=== PATIENT | male | born 1950 | race Caucasian/White ===

== ENCOUNTER 2019-07-18 11:37 | Emergency (ER) | payer MEDICARE ==
--- OUTSIDE RECORDS SUMMARY | 2019-07-18 12:46 | XMS REPORT | Continuity of Care Document ---
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 Onset: 10/14/2013 Chest pain Yonis Burr M.D. Onset: 10/14/2013 Paroxysmal ventricular tachycardia Yonis Burr M.D. Onset: 10/14/2013 Electrocardiogram abnormal Yonis Burr M.D. Onset: 10/14/2013 Coronary arteriosclerosis Yonis Burr M.D. Onset: 01/19/2014 Social History Type Date Description Comments Sex Unknown Tobacco Use Start: Unknown Former Cigarette 1 to 1 1/2 packs per End: Smoker 1 Pack Daily day. 5 years Tobacco Use Start: Unknown Secondhand smoke As a child, mother smoked inside Smoking Status Reviewed: 07/02/19 Secondhand smoke As a child, mother smoked inside ETOH Use consumes 1-2 beers per week Tobacco Use Start: Unknown Patient is a former hx of 1 pack End: Unknown smoker cigarettes perday, quit smoking 35 years ago Recreational Drug Use Denies Drug Use Exercise Type/Frequency Exercises regularly Exercise Type/Frequency Walks daily walking dog daily. 1 1/2 miles Allergies, Adverse Reactions, Alerts Description No Known Drug Allergies Medications Active Medications SIG Qnty Indications Ordering Date Provider Clopidogrel 1 tab by mouth 90tabs Aleida Sánchez, 12/20/2014 Bisulfate daily N.P. 75mg Tablets Bystolic 2 by mouth in 270tabs Aleida Sánchez, 08/12/2014 2.5mg morning and then 1 N.P. Tablets tab in at night Azilect 1 po qd am 30tabs Unknown 1mg Tablets Carbidopa/Levodopa take 1 po 5 times a 90tabs Unknown CR day 25-100mg Tablets ER Carbidopa/Levodopa 1 tab po day pm 120tabs Unknown SR 50-200mg Tablets ER Comtan 1 tab po five times Unknown 200mg Tablets per day Amantadine HCL 1 po tid 60tabs Unknown 100mg Tablets Lexapro 1 tab po qd Unknown 10mg Ropinirole ER 1 tab po bid Unknown 4mg afternoon and PM Aspir-Low 1 po qd pm 30tabs Unknown 81mg Tablets DR Atorvastatin Calcium 1 by mouth every 90tabs Aleida Sánchez, day N.P. 40mg Tablets Nitrostat one sl q5min up to 25tabs Aleida Sánchez, 0.4mg 3 doses as needed N.P. Tablets Sub Miralax daily for Unknown 17G constipation Immunizations Description No Information Available Vital Signs Date Vital Result Comment 07/02/2019 11:35am Height 67 inches 5'7" Weight 193.00 lb Heart Rate 60 /min BP Systolic Sitting 118 mmHg Lue large cuff BP Diastolic Sitting 70 mmHg Lue large cuff Respiratory Rate 12 /min O2 % BldC Oximetry 97 % BMI (Body Mass Index) 30.2 kg/m2 05/10/2019 1:37pm Height 67 inches 5'7" Weight 189.25 lb Heart Rate 56 /min BP Systolic Sitting 140 mmHg Rue reg cuff BP Diastolic Sitting 86 mmHg Rue reg cuff Respiratory Rate 14 /min O2 % BldC Oximetry 98 % On Ra BMI (Body Mass Index) 29.6 kg/m2 Results Description No Information Available Procedures Date Code Description Status 03/05/2019 60924 Sleep Study Unattended,HRT Rate,Oxygen Sat,Resp Completed Effort/Airflow Medical Devices Description No Information Available Encounters Type Date Location Provider Dx Diagnosis Office Visit 05/10/2019 [facility] G47.33 Obstructive sleep 1:30p [facility] apnea (adult) [facility] (pediatric) G47.52 REM sleep behavior disorder Office Visit 03/30/2019 [facility] G47.33 Obstructive sleep 1:00p [facility] apnea (adult) [facility] (pediatric) G47.52 REM sleep behavior disorder Office Visit 03/03/2019 11:30a [facility] Nettie 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 I44.7 Left bundle -branch Of [facility] Foster, N.P. block, unspecified I49.3 Ventricular premature depolarization I25.10 Athscl heart disease of [place] coronary artery w/o ang pctrs R00.2 Palpitations R94.31 Abnormal electrocardiogram [ECG] [EKG] I27.20 Pulmonary hypertension, unspecified Assessments Date Code Description Provider 07/02/2019 G47.33 Obstructive sleep apnea (adult) (pediatric) Rosalind Bustillos NP 07/02/2019 G47.52 REM sleep behavior disorder Rosalind Bustillos NP 05/10/2019 G47.33 Obstructive sleep apnea (adult) (pediatric) Rosalind Bustillos NP 05/10/2019 G47.52 REM sleep behavior disorder Rosalind Bustillos NP 03/30/2019 G47.33 Obstructive sleep apnea (adult) (pediatric) Rosalind Bustillos NP 03/30/2019 G47.52 REM sleep behavior disorder Rosalind Bustillos NP 03/05/2019 G47.33 Obstructive sleep apnea (adult) (pediatric) Nettie Vargas MD 03/03/2019 G47.9 Sleep disorder, unspecified Nettie Vargas MD 03/03/2019 R09.02 Hypoxemia Nettie Vargas MD 03/03/2019 I27.20 Pulmonary hypertension, unspecified Nettie Vargas MD 03/03/2019 G47.52 REM sleep behavior disorder Nettie Vargas MD 02/11/2019 I25.10 Atherosclerotic heart disease of [place] Nurse Visit IC coronary artery with 02/11/2019 I10 Essential (primary) hypertension Nurse Visit IC 01/19/2019 I44.7 Left bundle-branch block, unspecified Aleida Sánchez, N.P. 01/19/2019 I49.3 Ventricular premature depolarization Aleida Sánchez, N.P. 01/19/2019 I25.10 Atherosclerotic heart disease of [place] Aleida Sánchez, N.P. coronary artery with 01/19/2019 R00.2 Palpitations Aleida Sánchez, N.P. 01/19/2019 R94.31 Abnormal electrocardiogram [ECG] [EKG] Aleida Sánchez, N.P. 01/19/2019 I27.20 Pulmonary hypertension, unspecified Aleida Sánchez, N.P. Plan of Treatment Future Appointment(s):09/03/2019 1:30 pm - Rosalind Bustillos NP at [facility]07/21/2019 1:30 pm - Yonis Burr M.D. at [facility]07/02/2019 - Rosalind Bustillos NPG47.33 Obstructive sleep apnea (adult) (pediatric)New Orders:Sleep Study Cpap Retitration, Ordered: 07/02/19Follow up:2 months (PAP titration prior) Recommendations:If you have difficulty with your equipment, or need to replace your mask or hoses, please contact your homecare agency. If you have any further questions, please call the [facility] at [phone] If you have any sleepiness while driving you MUST avoid operating a vehicle or machinery. If you feel tired while driving pullman clerk and take a nap or switch drivers. If you know you are sleepy and need to go somewhere, arrange for a ride or use public transportation. It is very important to not risk your safety or the safety of others.G47.52 REM sleep behavior disorder Functional Status Description No Information Available Mental Status Description No Information Available Referrals Refer to Dr Reason for Referral Status Appt Date Nettie Vargas MD PVCs, snoring, pulmonary htn Sent [address] [place] [address] [phone]
[2019-07-18 13:17] VITALS: BP 151/71
--- NOTE | 2019-07-18 13:28 | UC ---
Respiratory Complaint HPI - HPI Summary HPI Summary: L sided sinus pain w/ some forehead pain x 3 days. ASsoc w/ tooth pain. also sick. He is requesting antibx. - History of Current Complaint Chief Complaint: UCGeneralIllness Stated Complaint: SINUSES Time Seen by Provider: 07/18/19 13:08 Hx Obtained From: Patient Pain Intensity: 0 Pain Scale Used: 0-10 Numeric Aggravating Factors: Nothing Alleviating Factors: Nothing Associated Signs And Symptoms: Negative: Fever - Allergies/Home Medications Allergies/Adverse Reactions: Allergies Allergy/AdvReac Type Severity Reaction Status Date / Time epinephrine Allergy Palpitation Verified 07/18/19 13:08 s PMH/Surg Hx/FS Hx/Imm Hx Previously Healthy: Yes Other Neurological History: parkinsons - Surgical History Surgical History: Yes Surgery Procedure, Year, and Place: Deep brain stimulator implant. stimulator battery replacement x2 - Family History Known Family History: Positive: None - Social History Alcohol Use: Rare Substance Use Type: None Smoking Status (MU): Never Smoked Tobacco - Immunization History Most Recent Influenza Vaccination: 2014/2015 Most Recent Tetanus Shot: within 10 years Most Recent Pneumonia Vaccination: 2014 Review of Systems All Other Systems Reviewed And Are Negative: Yes Constitutional: Negative: Fever Skin: Negative: Rash ENT: Positive: Dental Pain, Sinus Congestion, Sinus Pain/Tenderness. Negative: Sore Throat, Nasal Discharge Respiratory: Negative: Cough Cardiovascular: Negative: Negative Neurological: Negative: Headache Physical Exam Triage Information Reviewed: Yes Appearance: Well-Appearing Vital Signs: Initial Vital Signs Temp 97.4 F 07/18/19 13:11 Pulse 89 07/18/19 13:11 Resp 18 07/18/19 13:11 BP 151/71 07/18/19 13:11 Pulse Ox 100 07/18/19 13:11 Vital Signs Reviewed: Yes Eyes: Positive: Conjunctiva Clear ENT: Positive: Pharynx normal, TMs normal, Dental tenderness, Sinus tenderness - L max and frontal, Uvula midline Neck: Positive: Supple, Nontender, No Lymphadenopathy Respiratory Exam: Normal Cardiovascular Exam: Normal Neurological: Positive: Alert Skin: Negative: Rashes Respiratory Course/Dx - Course Course Of Treatment: Acute sinusitis w/ no fever and sick contact. He is requesting antibx. Does have eaxm findings that could be suggestive of bacterial source, will tx. vitals good. Have asked him to disc high blood pressure w/ pcp. - Differential Dx/Diagnosis Differential Diagnosis/HQI/PQRI: Sinusitis, Other Provider Diagnosis: Sinusitis Discharge ED - Sign-Out/Discharge Documenting (check all that apply): Patient Departure All imaging exams completed and their final reports reviewed: No Studies - Discharge Plan Condition: Good Disposition: HOME Prescriptions: Amoxicillin/Clavulanate TAB* [Augmentin TAB 500 mg*] 500 mg PO BID 7 Days #14 tab Patient Education Materials: Sinusitis (ED) Referrals: Severiano Bolivar MD [Primary Care Provider] - Additional Instructions: Please discuss your high blood pressure with your pcp - Billing Disposition and Condition Condition: GOOD Disposition: Home - Attestation Statements Provider Attestation: I was available for consult. This patient was seen by the DARIN. The patient was not presented to , seen by or examined by me -Vickey Escalante MD
== END 2019-07-18 13:57 | disposition home or self-care (01) ==
LOC: UCEAST 11:37
DX: J32.9 Chronic sinusitis, unspecified (principal); G20 Parkinson's disease
CPT/HCPCS: 99212; G0463

== ENCOUNTER 2019-08-11 19:45 | Inpatient (IN) | payer MEDICARE ==
[2019-08-11 20:26] LABS: ABS Basophils 0.1 10^3/ul (0-0.2); ABS Eosinophils 0.1 10^3/ul (0-0.6); ABS Lymphocytes 0.5 10^3/ul (1.0-4.8); ABS Monocytes 0.1 10^3/ul (0-0.8); ABS Neutrophils 7.6 10^3/ul (1.5-7.7); Eosinophil % 0.6 %; Hematocrit 41 % (42-52); Hemoglobin 14.2 g/dL (14.0-18.0); Lymphocyte % 5.4 %; Mean Corpuscular HGB Conc 35 g/dL (31-36); Mean Corpuscular Hemoglobin 30 pg (27-31); Mean Corpuscular Volume 87 fL (80-94); Mean Platelet Volume 6.7 fL (7.4-10.4); Nucleated Red Blood Cells % 0.2; Platelet Count 187 10^3/uL (150-450); Red Blood Count 4.69 10^6 /uL (4.18-5.48); Red Cell Distribution Width 13 % (10-15); White Blood Count 8.3 10^3/uL (3.5-10.8)
[2019-08-11] MEDS ORDERED: Acetaminophen TAB* 325 MG PO ONE (20:33)
[2019-08-11 20:38] LABS: Activated Partial Thrombo Time 31.7 seconds (26.0-38.0); INR 1.33 (0.82-1.09)
[2019-08-11 20:43] LABS: ALT 7 U/L (7-52); AST 18 U/L (13-39); Albumin 4.2 g/dL (3.2-5.2); Albumin/Globulin Ratio 1.6 (1-3); Alkaline Phosphatase 84 U/L (34-104); Anion Gap 7 mmol/L (2-11); BUN/Creatinine Ratio 16.8 (8-20); Blood Urea Nitrogen 17 mg/dL (6-24); C Reactive Protein 51.95 mg/L (<8.01); CO2 Carbon Dioxide 26 mmol/L (22-32); Calcium 8.9 mg/dL (8.6-10.3); Chloride 100 mmol/L (101-111); Creatine Kinase 117 U/L (10-223); EGFR African American 88.6 (>60); EGFR Non-African American 73.2 (>60); Globulin 2.7 g/dL (2-4); Glucose 119 mg/dL (70-100); Potassium 3.8 mmol/L (3.5-5.0); Sodium 133 mmol/L (135-145); Total Protein 6.9 g/dL (6.4-8.9)
--- OUTSIDE RECORDS SUMMARY | 2019-08-11 20:44 | XMS REPORT | Continuity of Care Document ---
:1950 External Reference #:[id number] Author Name Yonis Burr M.D. (transmitted by agent of provider Glenis Diaz) Address [address] 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 Problems Provider Date Palpitations Yonis [...] child, mother smoked inside Smoking Status Reviewed: 07/21/19 Secondhand smoke As a child, mother smoked [...] Available Vital Signs Date Vital Result Comment 07/21/2019 1:20pm Height 67 inches 5'7" Weight 191.00 lb with shoes Heart Rate 60 /min BP Systolic Sitting 130 mmHg Lue BP Diastolic Sitting 72 mmHg Lue BP Systolic Standing 136 mmHg Lue BP Diastolic Standing 70 mmHg Lue BMI (Body Mass Index) 29.9 kg/m2 Ejection Fraction 60-65% date 01/01/19 ECHO 07/02/2019 11:35am Height 67 inches 5'7" Weight 193.00 lb Heart Rate 60 /min BP Systolic Sitting 118 mmHg Lue large cuff BP Diastolic Sitting 70 mmHg Lue large cuff Respiratory Rate 12 /min O2 % BldC Oximetry 97 % BMI (Body Mass Index) 30.2 kg/m2 Results Description No Information Available Procedures Date Code Description Status 07/21/2019 97461 EKG Tracing & Interpretation Completed 03/05/2019 07409 Sleep Study Unattended,HRT Rate,Oxygen Sat,Resp Completed Effort/Airflow Medical Devices Description No Information Available Encounters Type Date Location Provider Dx Diagnosis Office Visit 07/02/2019 [facility] G47.33 Obstructive sleep 11:30a [facility] apnea (adult) [facility] (pediatric) G47.52 REM sleep behavior disorder Office Visit 05/10/2019 [facility] G47.33 Obstructive sleep 1:30p [facility] apnea (adult) [facility] (pediatric) G47.52 REM sleep behavior disorder Office Visit 03/30/2019 [facility] G47.33 Obstructive sleep 1:00p [facility] apnea (adult) [facility] (pediatric) G47.52 REM sleep behavior disorder Office Visit 03/03/2019 11:30a [facility] Nettie G47.9 Sleep disorder, [facility] unspecified 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 block, unspecified I49.3 Ventricular premature depolarization I25.10 Athscl heart disease of [place] coronary artery w/o ang pctrs R00.2 Palpitations R94.31 Abnormal electrocardiogram [ECG] [EKG] I27.20 Pulmonary hypertension, unspecified Assessments Date Code Description Provider 07/21/2019 I44.7 Left bundle-branch block, unspecified Yonis Burr M.D. 07/21/2019 I10 Essential (primary) hypertension Yonis Burr M.D. 07/21/2019 I25.10 Atherosclerotic heart disease of [place] Yonis Burr M.D. coronary artery with 07/02/2019 G47.33 Obstructive sleep apnea (adult) (pediatric) Rosalind Bustillos NP 07/02/2019 G47.52 REM sleep behavior disorder Rosalind Bustillos NP 05/10/2019 G47.33 Obstructive sleep apnea (adult) (pediatric) Rosalind Bustillos, [facility] 05/10/2019 G47.52 REM sleep behavior disorder Rosalind Bustillos NP 03/30/2019 G47.33 Obstructive sleep apnea (adult) (pediatric) Rosalind Bustillos, [facility] 03/30/2019 G47.52 REM sleep behavior disorder Rosalind Bustillos, [facility] 03/05/2019 G47.33 Obstructive sleep apnea (adult) (pediatric) Nettie Vargas MD 03/03/2019 G47.9 Sleep disorder, unspecified Nettie Vargas MD 03/03/2019 R09.02 Hypoxemia Nettie Vargas MD 03/03/2019 I27.20 Pulmonary hypertension, unspecified Nettie Vargas MD 03/03/2019 G47.52 REM sleep behavior disorder Nettie Vargas MD 02/11/2019 I25.10 Atherosclerotic heart disease of [place] Nurse Visit IC coronary artery with 02/11/2019 I10 Essential (primary) hypertension Nurse Visit IC 01/19/2019 I44.7 Left bundle-branch block, unspecified Aleida S. Gonzalo, N.P. 01/19/2019 I49.3 Ventricular premature depolarization Aleida Sánchez, N.P. 01/19/2019 I25.10 Atherosclerotic heart disease of [place] Aleida Gimenez. Gonzalo, N.P. coronary artery with 01/19/2019 R00.2 Palpitations Aleida Gimenez. Gonzalo, N.P. 01/19/2019 R94.31 Abnormal electrocardiogram [ECG] [EKG] Aleida Gimenez. Gonzalo, N.P. 01/19/2019 I27.20 Pulmonary hypertension, unspecified Aleida S. Foster, N.P. Plan of Treatment Future Appointment(s):09/03/2019 1:30 pm - Rosalind Bustillos NP at [facility]07/21/2019 - Yonis Burr M.D.I44.7 Left bundle-branch block, unspecifiedFollow up:6 [id number] Essential (primary) [id number] Atherosclerotic heart disease of [place] coronary artery with Functional Status Description No Information Available Mental Status Description No Information Available Referrals Refer to Reason for Referral Status Appt Date Nettie Vargas MD PVCs, snoring, pulmonary htn Sent [address] [place] [address] [phone]
[2019-08-11 20:48] LABS: Troponin I 0.04 ng/mL (<0.04)
[2019-08-11 21:14] LABS: Urine Appearance Cloudy; Urine Bacteria 2+ (Absent); Urine Bilirubin Negative (Negative); Urine Blood Negative (Negative); Urine Color Amber; Urine Glucose Negative (Negative); Urine Ketones Trace (Negative); Urine Nitrite Negative (Negative); Urine Protein Negative (Negative); Urine Red Blood Cell Absent (Absent); Urine Specific Gravity 1.018 (1.010-1.030); Urine Urobilinogen Negative (Negative); Urine White Blood Cell 3+(>20/hpf) (Absent)
[2019-08-11] MEDS ORDERED: cefTRIAXone(*) 1 GM in NS 0.9% 50 ML* 50 ML IVPB ONE (21:20)
--- NOTE | 2019-08-11 21:42 | ED ---
HPI Febrile Illness - HPI Summary HPI Summary: Patient is a 69 y/o M presenting to [facility] via EMS for chief complaint of fever. He states that towards the evening today just before supper, he had onset of subjective fever, stating that he felt himself becoming "hotter and hotter". Generalized weakness, slight productive cough is noted as well. Patient also states that he has had one episode of dysuria today. No chest pain, diarrhea, or constipation is reported. Home medications and allergies are reviewed. - History of Current Complaint Chief Complaint: EDFever Hx Obtained From: Patient Onset/Duration: Started Hours Ago, Still Present Timing: Constant, Lasting Hours Current Severity: None Pain Intensity: 0 Pain Scale Used: 0-10 Numeric Associated Signs and Symptoms: Cough, Dysuria, Weakness - generalized, Other: - no CP, constipation, diarrhea - Allergy/Home Medications Allergies/Adverse Reactions: Allergies Allergy/AdvReac Type Severity Reaction Status Date / Time epinephrine Allergy Palpitation Verified 08/11/19 19:55 s Home Medications: Home Medications Rasagiline Mesylate [Azilect] 1 mg PO DAILY 08/12/19 [History Confirmed 08/12/19 ] Ropinirole ER (NF) [Ropinirole ER (Nf)] 8 mg BID 08/12/19 [History Confirmed 01/26] PMH/Surg Hx/FS Hx/Imm Hx Endocrine/Hematology History: Denies: Hx Diabetes, Hx Thyroid Disease Cardiovascular History: Reports: Hx Hypercholesterolemia, Hx Hypertension - aortic hypertension, Hx Pacemaker/ICD, Hx Syncope, Other Cardiovascular Problems /Disorders - Left bundle branch block. Pt also has been in [facility] in excercise stress davon Denies: Hx Congestive Heart Failure Respiratory History: Reports: Hx Sleep Apnea Denies: Hx Asthma, Hx Chronic Obstructive Pulmonary Disease (COPD) GI History: Denies: Hx Ulcer History: Reports: Other Problems/Disorders - some urinary problems but may be related to Parkinsons Sensory History: Reports: Hx Contacts or Glasses Opthamlomology History: Reports: Hx Contacts or Glasses Neurological History: Reports: Other Neuro Impairments/Disorders - parkinisons Psychiatric History: Reports: Hx Depression - Surgical History Surgery Procedure, Year, and Place: Deep brain stimulator implant. stimulator battery replacement x2 Infectious Disease History: No Infectious Disease History: Denies: Hx Hepatitis, Hx Human Immunodeficiency Virus (HIV), History Other Infectious Disease, Traveled Outside the [place] in Last 30 Days - Family History Known Family History: Positive: Cardiac Disease - Social History Alcohol Use: Rare Substance Use Type: Reports: None Smoking Status (MU): Never Smoked Tobacco Review of Systems Positive: Fever, Fatigue - generalized weakness Negative: Chest Pain Positive: Cough Gastrointestinal: Other - no constipation Negative: Diarrhea Positive: dysuria All Other Systems Reviewed And Are Negative: Yes Physical Exam - Summary Physical Exam Summary: VITAL SIGNS: Reviewed. GENERAL: Patient is a well-developed and nourished male who is lying comfortable in the stretcher. Patient is not in any acute respiratory distress. HEAD AND FACE: No signs of trauma. No ecchymosis, hematomas or skull depressions. No sinus tenderness. EYES: PERRLA, EOMI x 2, No injected conjunctiva, no nystagmus. EARS: Hearing grossly intact. Ear canals and tympanic membranes are within normal limits. MOUTH: Oropharynx within normal limits. NECK: Supple, trachea is midline, no adenopathy, no JVD, no carotid bruit, no c- spine tenderness, neck with full ROM. CHEST: Symmetric, no tenderness at palpation. LUNGS: Decreased breath sounds bilaterally. No wheezing or crackles. CVS: Regular rate and rhythm, S1 and S2 present, no murmurs or gallops appreciated. ABDOMEN: Soft, non-tender. No signs of distention. No rebound, no guarding, and no masses palpated. Bowel sounds are normal. EXTREMITIES: FROM in all major joints, no edema, no cyanosis or clubbing. NEURO: Alert and oriented x 3. No acute neurological deficits. Speech is normal and follows commands. SKIN: Dry and warm. Triage Information Reviewed: Yes Vital Signs On Initial Exam: Initial Vitals Temp Pulse Resp BP Pulse Ox 103.4 F 88 22 138/66 95 08/11/19 19:53 08/11/19 19:53 08/11/19 19:53 08/11/19 19:53 08/11/19 19:53 Vital Signs Reviewed: Yes Diagnostics - Vital Signs Vital Signs Temp Pulse Resp BP Pulse Ox 08/11/19 21:38 103.2 F 08/11/19 19:53 103.4 F 88 22 138/66 95 - Laboratory Lab Results: Lab Results 08/11/19 08/11/19 08/11/19 Range/Units 20:16 20:16 20:16 WBC 8.3 (3.5-10.8) 10^3/uL RBC 4.69 (4.18-5.48) 10^6 /uL Hgb 14.2 (14.0-18.0) g/dL Hct 41 L (42-52) % MCV 87 (80-94) fL MCH 30 (27-31) pg MCHC 35 (31-36) g/dL RDW 13 (10-15) % Plt Count 187 (150-450) 10^3/uL MPV 6.7 L (7.4-10.4) fL Neut % (Auto) 91.9 % Lymph % (Auto) 5.4 % [place] % (Auto) 1.5 % Eos % (Auto) 0.6 % Baso % (Auto) 0.6 % Absolute Neuts (auto) 7.6 (1.5-7.7) 10^3/ul Absolute Lymphs (auto) 0.5 L (1.0-4.8) 10^3/ul Absolute Monos (auto) 0.1 (0-0.8) 10^3/ul Absolute Eos (auto) 0.1 (0-0.6) 10^3/ul Absolute Basos (auto) 0.1 (0-0.2) 10^3/ul Absolute Nucleated RBC 0.0 10^3/ul Nucleated RBC % 0.2 ESR Pending INR (Anticoag Therapy) 1.33 H (0.82-1.09) APTT 31.7 (26.0-38.0) seconds Sodium 133 L (135-145) mmol/L Potassium 3.8 (3.5-5.0) mmol/L Chloride 100 L (101-111) mmol/L Carbon Dioxide 26 (22-32) mmol/L Anion Gap 7 (2-11) mmol/L BUN 17 (6-24) mg/dL Creatinine 1.01 (0.67-1.17) mg/dL Est GFR ( Amer) 88.6 (>60) Est GFR (Non-Af Amer) 73.2 (>60) BUN/Creatinine Ratio 16.8 (8-20) Glucose 119 H (70-100) mg/dL Lactic Acid (0.5-2.0) mmol/L Calcium 8.9 (8.6-10.3) mg/dL Total Bilirubin 1.10 H (0.2-1.0) mg/dL AST 18 (13-39) U/L ALT 7 (7-52) U/L Alkaline Phosphatase 84 (34-104) U/L Total Creatine Kinase 117 (10-223) U/L Troponin I 0.04 H* (<0.04) ng/mL C-Reactive Protein 51.95 H (<8.01) mg/L B-Natriuretic Peptide (<=100) pg/mL Total Protein 6.9 (6.4-8.9) g/dL Albumin 4.2 (3.2-5.2) g/dL Globulin 2.7 (2-4) g/dL Albumin/Globulin Ratio 1.6 (1-3) Urine Color Urine Appearance Urine pH (5-9) Ur Specific [place] (1.010-1.030) Urine Protein (Negative) Urine Ketones (Negative) Urine Blood (Negative) Urine Nitrate (Negative) Urine Bilirubin (Negative) Urine Urobilinogen (Negative) Ur Leukocyte Esterase (Negative) Urine WBC (Auto) (Absent) Urine RBC (Auto) (Absent) Urine Bacteria (Absent) Urine Glucose (Negative) 08/11/19 08/11/19 08/11/19 Range/Units 20:16 20:16 20:45 WBC (3.5-10.8) 10^3/uL RBC (4.18-5.48) 10^6 /uL Hgb (14.0-18.0) g/dL Hct (42-52) % MCV (80-94) fL MCH (27-31) pg MCHC (31-36) g/dL RDW (10-15) % Plt Count (150-450) 10^3/uL MPV (7.4-10.4) fL Neut % (Auto) % Lymph % (Auto) % [place] % (Auto) % Eos % (Auto) % Baso % (Auto) % Absolute Neuts (auto) (1.5-7.7) 10^3/ul Absolute Lymphs (auto) (1.0-4.8) 10^3/ul Absolute Monos (auto) (0-0.8) 10^3/ul Absolute Eos (auto) (0-0.6) 10^3/ul Absolute Basos (auto) (0-0.2) 10^3/ul Absolute Nucleated RBC 10^3/ul Nucleated RBC % ESR INR (Anticoag Therapy) (0.82-1.09) APTT (26.0-38.0) seconds Sodium (135-145) mmol/L Potassium (3.5-5.0) mmol/L Chloride (101-111) mmol/L Carbon Dioxide (22-32) mmol/L Anion Gap (2-11) mmol/L BUN (6-24) mg/dL Creatinine (0.67-1.17) mg/dL Est GFR ( Amer) (>60) Est GFR (Non-Af Amer) (>60) BUN/Creatinine Ratio (8-20) Glucose (70-100) mg/dL Lactic Acid 2.1 H* (0.5-2.0) mmol/L Calcium (8.6-10.3) mg/dL Total Bilirubin (0.2-1.0) mg/dL AST (13-39) U/L ALT (7-52) U/L Alkaline Phosphatase (34-104) U/L Total Creatine Kinase (10-223) U/L Troponin I (<0.04) ng/mL C-Reactive Protein (<8.01) mg/L B-Natriuretic Peptide 66 (<=100) pg/mL Total Protein (6.4-8.9) g/dL Albumin (3.2-5.2) g/dL Globulin (2-4) g/dL Albumin/Globulin Ratio (1-3) Urine Color Radha Urine Appearance Cloudy Urine pH 7.0 (5-9) Ur Specific [place] 1.018 (1.010-1.030) Urine Protein Negative (Negative) Urine Ketones Trace A (Negative) Urine Blood Negative (Negative) Urine Nitrate Negative (Negative) Urine Bilirubin Negative (Negative) Urine Urobilinogen Negative (Negative) Ur Leukocyte Esterase 3+ A (Negative) Urine WBC (Auto) 3+(>20/hpf) A (Absent) Urine RBC (Auto) Absent (Absent) Urine Bacteria 2+ A (Absent) Urine Glucose Negative (Negative) Result Diagrams: 08/13/19 05:16 08/13/19 05:16 Lab Statement: Any lab studies that have been ordered have been reviewed, and results considered in the medical decision making process. - Radiology CXR Radiology Interpretation Completed By: ED Physician Summary of Radiographic Findings: CXR showed pacemaker on right side, no acute process, pending official report. - EKG 2020 Cardiac Rate: NL - rate of 85 BPM EKG Rhythm: Sinus Rhythm Summary of EKG Findings: EKG showed NSR with rate of 85 BPM, LBBB, which is new compared to EKG done on 06/04/2016. ED physician has reviewed and interpreted this EKG. 2129 Summary of EKG Findings: EKG showed NSR with rate of 75 BPM, LBBB, unchanged from EKG done today, 08/11/19, at 2020. ED physician has reviewed and interpreted this EKG. Re-Evaluation - Re-Evaluation First Eval Re-Evaluation Time: 20:21 Comment: EKG showed LBBB which is new compared to EKG done on 06/04/2016. Patient reports no chest pain. Second Eval Re-Evaluation Time: 21:40 Comment: The patient had reported that he had been diagnosed with LBBB previously. Patient had requested to be checked for prostatitis. Rectal exam: no melena, normal sphincter tone, prostate is soft and non-tender. Course/Dx - Course Assessment/Plan: Patient is a 69-year-old male who presents to the emergency department with a chief complaint of weakness, fever, dysuria. Blood test results without any significant abnormality except for INR is 1.33, sodium 133, chloride 100, glucose is 119, lactic acid is 2.1, troponin 0.04, CRP is 51.9. Urinalysis positive for UTI. In the ED course the patient was given IV fluids, Tylenol for the fever, anesthetic Rocephin. EKG shows a normal sinus rhythm with left bundle block. The patient reports that he has a history of a left bundle-branch block. At this time I discussed my physical exam and findings with Dr. Jordan from the hospitalist services who accepted the patient for admission. - Diagnoses Provider Diagnoses: Acute UTI, Left bundle branch block (LBBB) - Provider Notifications Discussed Care Of Patient With: Enoch Jordan Time Discussed With Above Provider: 21:38 Instructed by Provider To: Other - Patient's case was discussed, Dr. Jordan accepts for admission. Discharge ED - Sign-Out/Discharge Documenting (check all that apply): Patient Departure - admit - Discharge Plan Condition: Stable Disposition: ADMITTED TO [facility] - Billing Disposition and Condition Condition: STABLE Disposition: Admitted to [facility] - Attestation Statements Document Initiated by Pankaj: Yes Documenting Scribe: BOB TEIXEIRA Provider For Whom Pankaj is Documenting (Include Credential): COREY BERG MD Scribe Attestation: BOB Bowman, scribed for COREY BERG MD on 08/13/19 at 1806. Scribe Documentation Reviewed: Yes Provider Attestation: The documentation as recorded by the BOB hernández accurately reflects the service I personally performed and the decisions made by me, COREY BERG MD Status of Scribe Document: Viewed
[2019-08-11 23:22] LABS: Erythrocyte Sed Rate 15 mm/Hr (0-19)
[2019-08-12] MEDS ORDERED: Polyethylene Glycol 3350* 17 GM PACKET PO PRN (01:21)
[2019-08-12] MEDS ORDERED: Nitroglycerin TAB 0.4 MG* 0.4 MG TAB SL PRN (01:21)
[2019-08-12 02:27] LABS: Influenza A Molecular NEGATIVE (Negative); Influenza B Molecular NEGATIVE (Negative)
[2019-08-12] MEDS: NS 0.9% 1000 ML** 1,000 ML IV SCH ×2 (03:13→23:50)
--- NOTE | 2019-08-12 03:58 | HP ---
CC: Dr. Severiano Bolivar * ADMISSION HISTORY AND PHYSICAL: DATE OF ADMISSION: 08/11/19 PRIMARY CARE PHYSICIAN: Dr. Severiano Bolivar. RAIL DOWELING MACHINE OPERATOR: Dr. Burr. CHIEF COMPLAINT: Fever and chills. HISTORY OF PRESENT ILLNESS: This is a 69-year-old male with past medical history of exercise-induced ventricular tachycardia; Parkinsonism; intermittent left bundle-branch block; coronary artery disease, status post stent to the mid RCA, here due to fever, chills, and generalized weakness. The patient stated that he was in his usual state of health up until a day before yesterday when he had a sleep study done. Post sleep study, he went home and was noted to be very tired all day. When the asked him to get up, he stated that he is still feeling sleepy, having severe chills and rigors. The finally decided that she would bring him down to the [facility] and got him up to the chair and by the time she went back to get him out of the chair and into her car, the patient was very weak and could not even stand up. At this point, decided to call the ambulance for further evaluation. Upon arrival, the ambulance suggested that his sugar was elevated and possibly the patient also had fever. Upon arrival to the ER, his temperature was documented at 103.4 max and a repeat temperature about roughly 2 hours later was still 103. He was having severe chills and sweats. The patient stated that he does have a cough, but he states this is a chronic cough that he has had for many years and it is unchanged, although he recently was treated for upper respiratory tract infection. He denies any nausea or vomiting. He denies any chest pain or abdominal pain. The only other symptom is that he did have some burning sensation with urination, but it was only noticed at one time today. There was no other localizing symptom for his fever other than the one symptom of urinary burning sensation. No other urgency or frequency was also noted. PAST MEDICAL HISTORY: As mentioned exercise-induced ventricular tachycardia; Parkinsonism, status post deep vein stimulator; hyperlipidemia; intermittent left bundle-branch block; coronary artery disease, status post one stent to the RCA in 2013; and history of depression. PAST SURGICAL HISTORY: Include the single stent that was put in the RCA in 2013 and 9 years ago he also had deep brain stimulator put in. After inserting the original deep brain stimulator, the battery needed to be changed 4 years later and subsequently another 3 years later, he had another battery change, and since the last battery change it has been 2 years and it is running fine. HOME MEDICATIONS: The patient is currently on: 1. Aspirin 81 mg daily at bedtime. 2. Plavix 75 mg oral daily every morning. 3. Sinemet 50/500 CR one tablet at bedtime and Sinemet 25/100 one tab p.o. 5 times a day. 4. Atorvastatin 40 mg daily at bedtime. 5. Amantadine 100 mg p.o. t.i.d. 6. Requip 80 mg p.o. b.i.d. 7. MiraLAX 17 g packet p.r.n. for constipation. 8. Nitroglycerin 0.4 mg q.5 hours p.r.n. chest pain but has not used for many years. 9. Nebivolol 2.5 oral b.i.d. 10. Escitalopram 10 mg p.o. daily. 11. Entacapone 200 mg p.o. 5 times a day with the Sinemet. ALLERGIES: The patient is documented to have allergies to EPINEPHRINE, which causes him to have palpitations. FAMILY HISTORY: CO in his father at age 49. Mother had an CO in her older age. SOCIAL HISTORY: The patient had a 5-pack-year history of smoking, quit roughly 4 years ago. Occasional alcohol use. Lives with his who is his healthcare proxy and the patient is otherwise full code. REVIEW OF SYSTEMS: A 14-point review of systems did not reveal any new information, other than the ones mentioned in the HPI. PHYSICAL EXAMINATION GENERAL: The patient is awake, alert and oriented x3, does not appear to be in any acute respiratory distress. The patient was noted to have some tremors at rest. VITAL SIGNS: In the ER, BP was noted to be 111/57, heart rate 64, respiration rate 20, saturating 98% on room air, temperature as mentioned was 103.4. HEAD AND NECK: Atraumatic and normocephalic. Bilateral pupils are reactive. Oral mucosa was moist. NECK: Supple. No jugular venous distention. LUNGS: Clear to auscultation bilaterally. No wheezes, rhonchi, or rales. HEART: S1, S2. Regular rate and rhythm. ABDOMEN: Soft, nontender, and nondistended. EXTREMITIES: No cyanosis, clubbing, or edema. DIAGNOSTIC STUDIES/LAB DATA: CBC was unremarkable. Coagulation profile shows minimally elevated INR at 1.33. Comprehensive metabolic panel was remarkable for minimally elevated troponin of 0.04. C-reactive protein elevated at 51.93. Random glucose was elevated at 119. Lactic acid was elevated at 2.1. Urinalysis was positive for trace ketones, 3+ leuk esterase, 3+ wbc's, and 2+ bacteria. IMPRESSION: This is a 69-year-old male with Parkinson's disease, came in due to severe fever, chills, and rigors, noted to have positive urine for urinary tract infection. ASSESSMENT: 1. Fever secondary to urinary tract infection. We will continue the ceftriaxone that was started in the ER. We will follow up cultures. We will also order an sputum culture if he ever makes any sputum given he does have some dry cough, although chest x-ray was within normal limits, official read by radiologist is still pending. 2. Minimally elevated troponin. We will get serial troponins for now and consider an echocardiogram in the morning. We could consider a cardiology consult if troponin gets significantly elevated. 3. History of Parkinson's disease. Restart home medication. 4. History of exercise-induced ventricular tachycardia. Restart his Bystolic. 5. History of dyslipidemia. Restart his atorvastatin. 6. History of coronary artery disease. Restart his aspirin and Plavix. 7. History of depression. Restart his Lexapro. 8. DVT prophylaxis with subcu Lovenox. 9. Code status. He is a full code. [id number]/[facility] #: [id number] [facility]ALS[facility]
[2019-08-12 07:00] LABS: ABS Basophils 0.1 10^3/ul (0-0.2); ABS Eosinophils 0.1 10^3/ul (0-0.6); ABS Lymphocytes 1.1 10^3/ul (1.0-4.8); ABS Monocytes 0.7 10^3/ul (0-0.8); ABS Neutrophils 7.9 10^3/ul (1.5-7.7); Hematocrit 40 % (42-52); Hemoglobin 14.1 g/dL (14.0-18.0); Lymphocyte % 10.7 %; Mean Corpuscular HGB Conc 35 g/dL (31-36); Mean Corpuscular Hemoglobin 30 pg (27-31); Mean Corpuscular Volume 87 fL (80-94); Mean Platelet Volume 6.9 fL (7.4-10.4); Platelet Count 170 10^3/uL (150-450); Red Blood Count 4.65 10^6 /uL (4.18-5.48); Red Cell Distribution Width 13 % (10-15); White Blood Count 9.9 10^3/uL (3.5-10.8)
[2019-08-12 07:16] LABS: BUN/Creatinine Ratio 16.7 (8-20); Calcium 8.7 mg/dL (8.6-10.3); EGFR African American 87.6 (>60); EGFR Non-African American 72.4 (>60); Potassium 4.2 mmol/L (3.5-5.0)
[2019-08-12] MEDS: Amantadine CAP* 100 MG PO SCH ×3 (08:45→21:43)
[2019-08-12] MEDS: RASAGILINE 1 MG PO SCH (08:46)
[2019-08-12] MEDS: Clopidogrel TAB* 75 MG PO SCH (08:46)
[2019-08-12] MEDS: Escitalopram * 10 MG TAB PO SCH (08:46)
[2019-08-12] MEDS: Acetaminophen TAB* 325 MG PO PRN ×3 (08:48→21:50)
[2019-08-12] MEDS: NEBIVOLOL 2.5 MG PO SCH ×2 (08:52→21:42)
[2019-08-12] MEDS: ENTACAPONE 200 MG PO SCH ×4 (08:54→21:50)
[2019-08-12] MEDS ORDERED: Nebivolol TAB (NF) 2.5 MG TAB PO SCH (09:00)
[2019-08-12] MEDS: ROPINIROLE 8 MG PO SCH ×2 (09:06→21:41)
[2019-08-12] MEDS: Carbidopa/Levodop 25/100 MG TAB(*) PO SCH ×4 (09:08→21:55)
[2019-08-12] MEDS: Enoxaparin(*) 40 MG/0.4 ML SYR SUBCUT SCH (09:08)
[2019-08-12] MEDS: Entacapone (NF) 200 MG TAB PO SCH (14:16)
[2019-08-12] MEDS ORDERED: Ibuprofen TAB* 400 MG PO PRN (17:07)
[2019-08-12] MEDS ORDERED: cefTRIAXone(*) 2 GM in NS 0.9% 50 ML* 50 ML IVPB SCH (18:00)
[2019-08-12] MEDS ORDERED: cefTRIAXone(*) 1 GM in NS 0.9% 50 ML* 50 ML IVPB SCH (18:00)
--- NOTE | 2019-08-12 18:38 | PN ---
Subjective Date of Service: 08/12/19 Interval History: Fever overnight, T max 103 [place] fever again this morning. Objective Active Medications: Acetaminophen (Tylenol Tab*) 650 mg PO Q6H PRN PRN Reason: PAIN - MILD Last Admin: 08/12/19 15:51 Dose: 650 mg Amantadine HCl (Symmetrel Cap*) 100 mg PO TID [facility] Last Admin: 08/12/19 14:16 Dose: 100 mg Aspirin (Aspirin Ec Tab*) 81 mg PO BEDTIME [facility] Atorvastatin Calcium (Lipitor*) 40 mg PO BEDTIME [facility] Carbidopa/Levodopa (Sinemet 25/100 Tab(*)) 1 tab PO 0900,1400,1800,2100 [facility] Last Admin: 08/12/19 18:20 Dose: 1 tab Carbidopa/Levodopa (Sinemet Cr 50/200(*)) 1 tab.cr PO 0000 [facility] Carbidopa/Levodopa (Sinemet 25/100 Tab(*)) 1 tab PO 0000 [facility] Clopidogrel Bisulfate (Plavix Tab*) 75 mg PO QAM [facility] Last Admin: 08/12/19 08:46 Dose: 75 mg Enoxaparin Sodium (Lovenox(*)) 40 mg SUBCUT Q24H [facility] Last Admin: 08/12/19 09:08 Dose: 40 mg Entacapone (Comtan(Nf)) 200 mg PO 0900,1400,1800,2100 [facility] Last Admin: 08/12/19 18:21 Dose: 200 mg Entacapone (Comtan(Nf)) 200 mg PO 0000 [facility] Last Admin: 08/12/19 14:16 Dose: 200 mg Escitalopram Oxalate (Lexapro *) 10 mg PO DAILY [facility] Last Admin: 08/12/19 08:46 Dose: 10 mg Sodium Chloride (Ns 0.9% 1000 Ml) 1,000 mls @ 75 mls/hr IV PER RATE [facility] Last Admin: 08/12/19 03:13 Dose: 75 mls/hr Ceftriaxone Sodium 2 gm/ (Sodium Chloride) 50 mls @ 100 mls/hr IVPB Q24H [facility] Last Admin: 08/12/19 18:18 Dose: 100 mls/hr Ibuprofen (Motrin Tab*) 400 mg PO Q6H PRN PRN Reason: MILD PAIN or TEMP > 100.4 Nebivolol (Bystolic Tab (Nf)) 5 mg PO QAM [facility] Last Admin: 08/12/19 08:52 Dose: 5 mg Nebivolol (Bystolic Tab (Nf)) 2.5 mg PO 2100 [facility] Nitroglycerin (Nitroglycerin Tab 0.4 Mg*) 0.4 mg SL Q5M PRN PRN Reason: PAIN - CHEST Polyethylene Glycol/Electrolytes (Miralax*) 17 gm PO BEDTIME PRN PRN Reason: CONSTIPATION Rasagiline (Azilect (Nf)) 1 mg PO DAILY [facility] Last Admin: 08/12/19 08:46 Dose: 1 mg Ropinirole HCl (Ropinirole Er (Nf)) 8 mg PO BID [facility] Last Admin: 08/12/19 09:06 Dose: Not Given Vital Signs - 8 hr 08/12/19 08/12/19 08/12/19 11:15 13:00 15:15 Temperature 97.5 F 100.3 F 101.9 F Pulse Rate 70 73 Respiratory 20 16 Rate Blood Pressure 123/57 150/63 (mmHg) O2 Sat by Pulse 97 99 Oximetry Oxygen Devices in Use Now: None Exam: Appearance: not in acute distress, but diaphoresis Eyes: No Scleral Icterus Ears/Nose/Mouth/Throat: NL Teeth, Lips, Gums Neck: NL Appearance and Movements; NL JVP Respiratory: Symmetrical Chest Expansion and Respiratory Effort Cardiovascular: RRR, no murmur Abdominal: soft, non tender Lymphatic: No Cervical Adenopathy Extremities: No Edema Result Diagrams: 08/13/19 05:16 08/13/19 05:16 Additional Lab and Data: Lab Results 08/11/19 08/11/19 08/11/19 Range/Units 20:16 20:16 20:16 WBC 8.3 (3.5-10.8) 10^3/uL RBC 4.69 (4.18-5.48) 10^6 /uL Hgb 14.2 (14.0-18.0) g/dL Hct 41 L (42-52) % MCV 87 (80-94) fL MCH 30 (27-31) pg MCHC 35 (31-36) g/dL RDW 13 (10-15) % Plt Count 187 (150-450) 10^3/uL MPV 6.7 L (7.4-10.4) fL Neut % (Auto) 91.9 % Lymph % (Auto) 5.4 % [place] % (Auto) 1.5 % Eos % (Auto) 0.6 % Baso % (Auto) 0.6 % Absolute Neuts (auto) 7.6 (1.5-7.7) 10^3/ul Absolute Lymphs (auto) 0.5 L (1.0-4.8) 10^3/ul Absolute Monos (auto) 0.1 (0-0.8) 10^3/ul Absolute Eos (auto) 0.1 (0-0.6) 10^3/ul Absolute Basos (auto) 0.1 (0-0.2) 10^3/ul Absolute Nucleated RBC 0.0 10^3/ul Nucleated RBC % 0.2 ESR Pending INR (Anticoag Therapy) 1.33 H (0.82-1.09) APTT 31.7 (26.0-38.0) seconds Sodium 133 L (135-145) mmol/L Potassium 3.8 (3.5-5.0) mmol/L Chloride 100 L (101-111) mmol/L Carbon Dioxide 26 (22-32) mmol/L Anion Gap 7 (2-11) mmol/L BUN 17 (6-24) mg/dL Creatinine 1.01 (0.67-1.17) mg/dL Est GFR ( Amer) 88.6 (>60) Est GFR (Non-Af Amer) 73.2 (>60) BUN/Creatinine Ratio 16.8 (8-20) Glucose 119 H (70-100) mg/dL Lactic Acid (0.5-2.0) mmol/L Calcium 8.9 (8.6-10.3) mg/dL Total Bilirubin 1.10 H (0.2-1.0) mg/dL AST 18 (13-39) U/L ALT 7 (7-52) U/L Alkaline Phosphatase 84 (34-104) U/L Total Creatine Kinase 117 (10-223) U/L Troponin I 0.04 H* (<0.04) ng/mL C-Reactive Protein 51.95 H (<8.01) mg/L B-Natriuretic Peptide (<=100) pg/mL Total Protein 6.9 (6.4-8.9) g/dL Albumin 4.2 (3.2-5.2) g/dL Globulin 2.7 (2-4) g/dL Albumin/Globulin Ratio 1.6 (1-3) Urine Color Urine Appearance Urine pH (5-9) Ur Specific [place] (1.010-1.030) Urine Protein (Negative) Urine Ketones (Negative) Urine Blood (Negative) Urine Nitrate (Negative) Urine Bilirubin (Negative) Urine Urobilinogen (Negative) Ur Leukocyte Esterase (Negative) Urine WBC (Auto) (Absent) Urine RBC (Auto) (Absent) Urine Bacteria (Absent) Urine Glucose (Negative) 08/11/19 08/11/19 08/11/19 Range/Units 20:16 20:16 20:45 WBC (3.5-10.8) 10^3/uL RBC (4.18-5.48) 10^6 /uL Hgb (14.0-18.0) g/dL Hct (42-52) % MCV (80-94) fL MCH (27-31) pg MCHC (31-36) g/dL RDW (10-15) % Plt Count (150-450) 10^3/uL MPV (7.4-10.4) fL Neut % (Auto) % Lymph % (Auto) % [place] % (Auto) % Eos % (Auto) % Baso % (Auto) % Absolute Neuts (auto) (1.5-7.7) 10^3/ul Absolute Lymphs (auto) (1.0-4.8) 10^3/ul Absolute Monos (auto) (0-0.8) 10^3/ul Absolute Eos (auto) (0-0.6) 10^3/ul Absolute Basos (auto) (0-0.2) 10^3/ul Absolute Nucleated RBC 10^3/ul Nucleated RBC % ESR INR (Anticoag Therapy) (0.82-1.09) APTT (26.0-38.0) seconds Sodium (135-145) mmol/L Potassium (3.5-5.0) mmol/L Chloride (101-111) mmol/L Carbon Dioxide (22-32) mmol/L Anion Gap (2-11) mmol/L BUN (6-24) mg/dL Creatinine (0.67-1.17) mg/dL Est GFR ( Amer) (>60) Est GFR (Non-Af Amer) (>60) BUN/Creatinine Ratio (8-20) Glucose (70-100) mg/dL Lactic Acid 2.1 H* (0.5-2.0) mmol/L Calcium (8.6-10.3) mg/dL Total Bilirubin (0.2-1.0) mg/dL AST (13-39) U/L ALT (7-52) U/L Alkaline Phosphatase (34-104) U/L Total Creatine Kinase (10-223) U/L Troponin I (<0.04) ng/mL C-Reactive Protein (<8.01) mg/L B-Natriuretic Peptide 66 (<=100) pg/mL Total Protein (6.4-8.9) g/dL Albumin (3.2-5.2) g/dL Globulin (2-4) g/dL Albumin/Globulin Ratio (1-3) Urine Color Radha Urine Appearance Cloudy Urine pH 7.0 (5-9) Ur Specific [place] 1.018 (1.010-1.030) Urine Protein Negative (Negative) Urine Ketones Trace A (Negative) Urine Blood Negative (Negative) Urine Nitrate Negative (Negative) Urine Bilirubin Negative (Negative) Urine Urobilinogen Negative (Negative) Ur Leukocyte Esterase 3+ A (Negative) Urine WBC (Auto) 3+(>20/hpf) A (Absent) Urine RBC (Auto) Absent (Absent) Urine Bacteria 2+ A (Absent) Urine Glucose Negative (Negative) Assess/Plan/Problems-Billing Assessment: 69 y/o male with history of advanced parkinson disease, exercise induced ventricular tachycardia, CAD, presented with acute onset fever, chills and urinary burning sensation, found to have Gram negative bacteremia likely due to E.coli UTI. - Patient Problems (1) Bacteremia Current Visit: Yes Status: Acute Code(s): R78.81 - BACTEREMIA SNOMED Code( s): 6104657 Comment: - Gram neg bacilli - likely due to UTI - start on IV ceftriaxone - a/w cs sensitivity - iv ns continuous for sepsis - symptomatic tx for fever (2) UTI (urinary tract infection) Current Visit: Yes Status: Acute Comment: - E.coli UTI - continue IV ceftriaxone - a/w cs sensitivity (3) LBBB (left bundle branch block) Current Visit: Yes Status: Acute Code(s): I44.7 - LEFT BUNDLE-BRANCH BLOCK, UNSPECIFIED SNOMED Code(s): 01363180 Comment: intermittent LBBB not new (4) Parkinson disease Current Visit: Yes Status: Acute Code(s): G20 - PARKINSON'S DISEASE SNOMED Code(s): 37132075 Comment: continue home medication (5) DVT prophylaxis Current Visit: Yes Status: Acute Code(s): Z29.9 - ENCOUNTER FOR PROPHYLACTIC MEASURES, UNSPECIFIED SNOMED Code(s): 852307654 Comment: sc lovenox Status and Disposition: Inpatient Medicine. Attestation Documenting Resident: Juliette Singleton Supervising Physician: Frank Singh Attending/Supervising Physician Comment: Agree with plan as outlined in Dr. Liu note from today unless indicated here. 66M a/w AMS and weakness found with e/coli in urine and GNR in blood suspected e. Coli On CTX IVF at 75cc/hr Stable, feeling better since admission Attestation: This service has been performed in part by a resident under the direction of a teaching physician.I, Frank Singh, performed the service, or was physically present during the critical, or [place] portions of the service, furnished by the resident. I participated in the management of the patient.
[2019-08-12] MEDS: Aspirin EC TAB* 81 MG TAB.EC PO SCH (21:43)
[2019-08-12] MEDS: Atorvastatin* 40 MG TAB PO SCH (21:43)
[2019-08-13] MEDS: Entacapone (NF) 200 MG TAB PO SCH (00:33)
[2019-08-13] MEDS: Carbidopa/Levodop 25/100 MG TAB(*) PO SCH ×5 (00:33→21:59)
[2019-08-13] MEDS: Carbidopa/Levodop CR 50/200(*) TAB.CR PO SCH (00:33)
[2019-08-13 05:52] LABS: ABS Lymphocytes 0.7 10^3/ul (1.0-4.8); ABS Monocytes 0.6 10^3/ul (0-0.8); ABS Neutrophils 5.3 10^3/ul (1.5-7.7); Eosinophil % 0.2 %; Hematocrit 38 % (42-52); Hemoglobin 13.3 g/dL (14.0-18.0); Lymphocyte % 10.7 %; Mean Corpuscular HGB Conc 35 g/dL (31-36); Mean Corpuscular Hemoglobin 30 pg (27-31); Mean Corpuscular Volume 87 fL (80-94); Mean Platelet Volume 7.2 fL (7.4-10.4); Platelet Count 152 10^3/uL (150-450); Red Blood Count 4.38 10^6 /uL (4.18-5.48); Red Cell Distribution Width 13 % (10-15); White Blood Count 6.6 10^3/uL (3.5-10.8)
[2019-08-13 06:01] LABS: Calcium 8.5 mg/dL (8.6-10.3); Potassium 3.9 mmol/L (3.5-5.0)
[2019-08-13 06:06] LABS: BUN/Creatinine Ratio 13.4 (8-20); EGFR African American 92.9 (>60); EGFR Non-African American 76.7 (>60)
[2019-08-13] MEDS ORDERED: cefTRIAXone(*) 2 GM in NS 0.9% 100 ML* 100 ML IVPB SCH (08:08)
[2019-08-13] MEDS: ROPINIROLE 8 MG PO SCH (09:39)
[2019-08-13] MEDS: Amantadine CAP* 100 MG PO SCH ×3 (09:44→21:42)
[2019-08-13] MEDS: Escitalopram * 10 MG TAB PO SCH (09:45)
[2019-08-13] MEDS: Clopidogrel TAB* 75 MG PO SCH (09:45)
[2019-08-13] MEDS: NEBIVOLOL 2.5 MG PO SCH ×2 (09:46→21:46)
[2019-08-13] MEDS: RASAGILINE 1 MG PO SCH (09:46)
[2019-08-13] MEDS: Enoxaparin(*) 40 MG/0.4 ML SYR SUBCUT SCH (09:48)
[2019-08-13] MEDS: ENTACAPONE 200 MG PO SCH ×4 (09:48→21:57)
[2019-08-13 14:03] LABS: Total Bilirubin 0.7 mg/dL (0.2-1.0)
--- NOTE | 2019-08-13 14:04 | PN ---
Hospitalist Progress Note Date of Service: 08/13/19 Subjective: The patient is feeling a little better today. He still has the fever, chills and weakness. His pee was cloudy and light green yesterday but today its yellow and clear. Objective: Vitals: BP-119/65, Resp-20, Heart rate- 71, 98% on room air, temp is 97.8 Appearance: not in acute distress Eyes: No Scleral Icterus Ears/Nose/Mouth/Throat: NL Teeth, Lips, Gums Neck: NL Appearance and Movements; NL JVP Respiratory: Symmetrical Chest Expansion and Respiratory Effort Cardiovascular: RRR, no murmur Abdominal: soft, non-tender Lymphatic: No Cervical Adenopathy Extremities: No Edema but tremor from Parkinson. Hgb: 13.3 L Hct: 38 L MPV: 7.2 L Abs lymphs: 0.7 L Sodium: 132 L Glucose: 110 H Calcium: 8.5 L Assessment: 69 y/o male with history of advanced parkinson disease, exercise induced ventricular tachycardia, CAD, presented with acute onset fever, chills and urinary burning sensation, found to have Gram negative bacteremia likely due to E.coli UTI. Plan: (1) Bacteremia - urine culture came back positive for ecoli. - Gram neg bacilli - likely due to UTI - start on IV ceftriaxone - iv ns continuous for sepsis - symptomatic tx for fever (2) UTI (urinary tract infection) - E.coli UTI - continue IV ceftriaxone 50 mls @100 mls/hr IVPB Q24H. (3) LBBB (left bundle branch block) (4) Parkinson disease -continue home medication : amantadine 100 mg PO TID, carbidopa/levodopa 25/100 tab, entacapone 200 mg PO, rasagiline 1 mg PO daily, ropinirole 8 mg PO BID. (5) DVT prophylaxis -enoxaparin 40 mg Q24H (6) Stent -RCA stent in 2013 -aspirin 81 mg PO, atorvastatin 40 mg PO, clopidogrel 75 mg PO QAM, enoxaparin 40 mg Q24H, nitroglycerin 0.4 mg SL Q5M PRN (chest pain) (7) Depression -escitalopram 10 mg PO daily
--- NOTE | 2019-08-13 16:24 | PN ---
Subjective Date of Service: 08/13/19 Interval History: [place] generally better. still spiked fever, but Tmax downtrending. no dysuria, no hematuria. Objective Active Medications: Acetaminophen (Tylenol Tab*) 650 mg PO Q6H PRN PRN Reason: PAIN - MILD Last Admin: 08/12/19 21:50 Dose: 650 mg Amantadine HCl (Symmetrel Cap*) 100 mg PO TID [facility] Last Admin: 08/13/19 13:26 Dose: 100 mg Aspirin (Aspirin Ec Tab*) 81 mg PO BEDTIME [facility] Last Admin: 08/12/19 21:43 Dose: 81 mg Atorvastatin Calcium (Lipitor*) 40 mg PO BEDTIME [facility] Last Admin: 08/12/19 21:43 Dose: 40 mg Carbidopa/Levodopa (Sinemet 25/100 Tab(*)) 1 tab PO 0900,1400,1800,2100 [facility] Last Admin: 08/13/19 13:26 Dose: 1 tab Carbidopa/Levodopa (Sinemet Cr 50/200(*)) 1 tab.cr PO 0000 [facility] Last Admin: 08/13/19 00:33 Dose: 1 tab.cr Carbidopa/Levodopa (Sinemet 25/100 Tab(*)) 1 tab PO 0000 [facility] Last Admin: 08/13/19 00:33 Dose: 1 tab Clopidogrel Bisulfate (Plavix Tab*) 75 mg PO QAM [facility] Last Admin: 08/13/19 09:45 Dose: 75 mg Enoxaparin Sodium (Lovenox(*)) 40 mg SUBCUT Q24H [facility] Last Admin: 08/13/19 09:48 Dose: Not Given Entacapone (Comtan(Nf)) 200 mg PO 0900,1400,1800,2100 [facility] Last Admin: 08/13/19 13:28 Dose: 200 mg Entacapone (Comtan(Nf)) 200 mg PO 0000 [facility] Last Admin: 08/13/19 00:33 Dose: 200 mg Escitalopram Oxalate (Lexapro *) 10 mg PO DAILY [facility] Last Admin: 08/13/19 09:45 Dose: 10 mg Ceftriaxone Sodium 2 gm/ (Sodium Chloride) 100 mls @ 200 mls/hr IVPB 1800 [facility] Ibuprofen (Motrin Tab*) 400 mg PO Q6H PRN PRN Reason: MILD PAIN or TEMP > 100.4 Nebivolol (Bystolic Tab (Nf)) 5 mg PO QAM [facility] Last Admin: 08/13/19 09:46 Dose: 5 mg Nebivolol (Bystolic Tab (Nf)) 2.5 mg PO 2100 [facility] Last Admin: 08/12/19 21:42 Dose: 2.5 mg Nitroglycerin (Nitroglycerin Tab 0.4 Mg*) 0.4 mg SL Q5M PRN PRN Reason: PAIN - CHEST Pto:Ropinirole Er 4 (Mg Tab) 1 dose PO BID [facility] Polyethylene Glycol/Electrolytes (Miralax*) 17 gm PO BEDTIME PRN PRN Reason: CONSTIPATION Rasagiline (Azilect (Nf)) 1 mg PO DAILY [facility] Last Admin: 08/13/19 09:46 Dose: 1 mg Vital Signs - 8 hr 08/13/19 08/13/19 11:15 15:15 Temperature 97.6 F 98.4 F Pulse Rate 67 68 Respiratory 20 20 Rate Blood Pressure 151/72 129/65 (mmHg) O2 Sat by Pulse 93 98 Oximetry Oxygen Devices in Use Now: None Exam: Appearance: calm, comfortably sitting on a recliner Eyes: No Scleral Icterus Ears/Nose/Mouth/Throat: NL Teeth, Lips, Gums Neck: NL Appearance and Movements; NL JVP Respiratory: Symmetrical Chest Expansion and Respiratory Effort Cardiovascular: RRR, no murmur Abdominal: soft, non tender Lymphatic: No Cervical Adenopathy Extremities: No Edema Result Diagrams: 08/13/19 05:16 08/13/19 05:16 Additional Lab and Data: Lab Results 08/11/19 08/11/19 08/11/19 Range/Units 20:16 20:16 20:16 WBC 8.3 (3.5-10.8) 10^3/uL RBC 4.69 (4.18-5.48) 10^6 /uL Hgb 14.2 (14.0-18.0) g/dL Hct 41 L (42-52) % MCV 87 (80-94) fL MCH 30 (27-31) pg MCHC 35 (31-36) g/dL RDW 13 (10-15) % Plt Count 187 (150-450) 10^3/uL MPV 6.7 L (7.4-10.4) fL Neut % (Auto) 91.9 % Lymph % (Auto) 5.4 % [place] % (Auto) 1.5 % Eos % (Auto) 0.6 % Baso % (Auto) 0.6 % Absolute Neuts (auto) 7.6 (1.5-7.7) 10^3/ul Absolute Lymphs (auto) 0.5 L (1.0-4.8) 10^3/ul Absolute Monos (auto) 0.1 (0-0.8) 10^3/ul Absolute Eos (auto) 0.1 (0-0.6) 10^3/ul Absolute Basos (auto) 0.1 (0-0.2) 10^3/ul Absolute Nucleated RBC 0.0 10^3/ul Nucleated RBC % 0.2 ESR Pending INR (Anticoag Therapy) 1.33 H (0.82-1.09) APTT 31.7 (26.0-38.0) seconds Sodium 133 L (135-145) mmol/L Potassium 3.8 (3.5-5.0) mmol/L Chloride 100 L (101-111) mmol/L Carbon Dioxide 26 (22-32) mmol/L Anion Gap 7 (2-11) mmol/L BUN 17 (6-24) mg/dL Creatinine 1.01 (0.67-1.17) mg/dL Est GFR ( Amer) 88.6 (>60) Est GFR (Non-Af Amer) 73.2 (>60) BUN/Creatinine Ratio 16.8 (8-20) Glucose 119 H (70-100) mg/dL Lactic Acid (0.5-2.0) mmol/L Calcium 8.9 (8.6-10.3) mg/dL Total Bilirubin 1.10 H (0.2-1.0) mg/dL AST 18 (13-39) U/L ALT 7 (7-52) U/L Alkaline Phosphatase 84 (34-104) U/L Total Creatine Kinase 117 (10-223) U/L Troponin I 0.04 H* (<0.04) ng/mL C-Reactive Protein 51.95 H (<8.01) mg/L B-Natriuretic Peptide (<=100) pg/mL Total Protein 6.9 (6.4-8.9) g/dL Albumin 4.2 (3.2-5.2) g/dL Globulin 2.7 (2-4) g/dL Albumin/Globulin Ratio 1.6 (1-3) Urine Color Urine Appearance Urine pH (5-9) Ur Specific [place] (1.010-1.030) Urine Protein (Negative) Urine Ketones (Negative) Urine Blood (Negative) Urine Nitrate (Negative) Urine Bilirubin (Negative) Urine Urobilinogen (Negative) Ur Leukocyte Esterase (Negative) Urine WBC (Auto) (Absent) Urine RBC (Auto) (Absent) Urine Bacteria (Absent) Urine Glucose (Negative) 08/11/19 08/11/19 08/11/19 Range/Units 20:16 20:16 20:45 WBC (3.5-10.8) 10^3/uL RBC (4.18-5.48) 10^6 /uL Hgb (14.0-18.0) g/dL Hct (42-52) % MCV (80-94) fL MCH (27-31) pg MCHC (31-36) g/dL RDW (10-15) % Plt Count (150-450) 10^3/uL MPV (7.4-10.4) fL Neut % (Auto) % Lymph % (Auto) % [place] % (Auto) % Eos % (Auto) % Baso % (Auto) % Absolute Neuts (auto) (1.5-7.7) 10^3/ul Absolute Lymphs (auto) (1.0-4.8) 10^3/ul Absolute Monos (auto) (0-0.8) 10^3/ul Absolute Eos (auto) (0-0.6) 10^3/ul Absolute Basos (auto) (0-0.2) 10^3/ul Absolute Nucleated RBC 10^3/ul Nucleated RBC % ESR INR (Anticoag Therapy) (0.82-1.09) APTT (26.0-38.0) seconds Sodium (135-145) mmol/L Potassium (3.5-5.0) mmol/L Chloride (101-111) mmol/L Carbon Dioxide (22-32) mmol/L Anion Gap (2-11) mmol/L BUN (6-24) mg/dL Creatinine (0.67-1.17) mg/dL Est GFR ( Amer) (>60) Est GFR (Non-Af Amer) (>60) BUN/Creatinine Ratio (8-20) Glucose (70-100) mg/dL Lactic Acid 2.1 H* (0.5-2.0) mmol/L Calcium (8.6-10.3) mg/dL Total Bilirubin (0.2-1.0) mg/dL AST (13-39) U/L ALT (7-52) U/L Alkaline Phosphatase (34-104) U/L Total Creatine Kinase (10-223) U/L Troponin I (<0.04) ng/mL C-Reactive Protein (<8.01) mg/L B-Natriuretic Peptide 66 (<=100) pg/mL Total Protein (6.4-8.9) g/dL Albumin (3.2-5.2) g/dL Globulin (2-4) g/dL Albumin/Globulin Ratio (1-3) Urine Color Radha Urine Appearance Cloudy Urine pH 7.0 (5-9) Ur Specific [place] 1.018 (1.010-1.030) Urine Protein Negative (Negative) Urine Ketones Trace A (Negative) Urine Blood Negative (Negative) Urine Nitrate Negative (Negative) Urine Bilirubin Negative (Negative) Urine Urobilinogen Negative (Negative) Ur Leukocyte Esterase 3+ A (Negative) Urine WBC (Auto) 3+(>20/hpf) A (Absent) Urine RBC (Auto) Absent (Absent) Urine Bacteria 2+ A (Absent) Urine Glucose Negative (Negative) Assess/Plan/Problems-Billing Assessment: 69 y/o male with history of advanced parkinson disease, exercise induced ventricular tachycardia, CAD, presented with acute onset fever, chills and urinary burning sensation, found to have E.coli bacteremia likely due to E.coli UTI. - Patient Problems (1) Bacteremia Current Visit: Yes Status: Acute Code(s): R78.81 - BACTEREMIA SNOMED Code( s): 0194958 Comment: - E.coli, sensitivty pending - likely due to UTI, urine cs E.coli - start on IV ceftriaxone - a/w cs sensitivity - off iv drip since less insensible loss due to fever - symptomatic tx for fever (2) UTI (urinary tract infection) Current Visit: Yes Status: Acute Comment: - E.coli UTIl, pansensitive - continue IV ceftriaxone - a/w cs sensitivity (3) LBBB (left bundle branch block) Current Visit: Yes Status: Acute Code(s): I44.7 - LEFT BUNDLE-BRANCH BLOCK, UNSPECIFIED SNOMED Code(s): 94514598 Comment: intermittent LBBB not new (4) Parkinson disease Current Visit: Yes Status: Acute Code(s): G20 - PARKINSON'S DISEASE SNOMED Code(s): 01638962 Comment: continue home medication (5) DVT prophylaxis Current Visit: Yes Status: Acute Code(s): Z29.9 - ENCOUNTER FOR PROPHYLACTIC MEASURES, UNSPECIFIED SNOMED Code(s): 659897406 Comment: sc lovenox Status and Disposition: Inpatient Medicine. Attestation Documenting Resident: Juliette Singleton Supervising Physician: Frank Singh Attending/Supervising Physician Comment: Agree with plan as outlined in Dr. Singleton's note from today unless indicated here. Bacteremia and UTI with same pansensitive e. coli on CTX. Did not meet sepsis criteria on presentation Improving on abx Attestation: This service has been performed in part by a resident under the direction of a teaching physician.I, Frank Singh, performed the service, or was physically present during the critical, or [place] portions of the service, furnished by the resident. I participated in the management of the patient.
[2019-08-13] MEDS: Acetaminophen TAB* 325 MG PO PRN (17:05)
[2019-08-13] MEDS: cefTRIAXone(*) 2 GM in NS 0.9% 100 ML* 100 ML IVPB SCH (17:59)
[2019-08-13] MEDS: Atorvastatin* 40 MG TAB PO SCH (21:42)
[2019-08-13] MEDS: Aspirin EC TAB* 81 MG TAB.EC PO SCH (21:42)
[2019-08-13] MEDS: ROPINIROLE 4 MG PO SCH (21:44)
[2019-08-14] MEDS: Entacapone (NF) 200 MG TAB PO SCH ×2 (00:14→23:35)
[2019-08-14] MEDS: Carbidopa/Levodop CR 50/200(*) TAB.CR PO SCH ×2 (00:14→23:35)
[2019-08-14] MEDS: Carbidopa/Levodop 25/100 MG TAB(*) PO SCH ×6 (00:14→23:34)
[2019-08-14] MEDS: Acetaminophen TAB* 325 MG PO PRN (00:18)
[2019-08-14] MEDS: Amantadine CAP* 100 MG PO SCH ×3 (08:39→21:50)
[2019-08-14] MEDS: Escitalopram * 10 MG TAB PO SCH (08:40)
[2019-08-14] MEDS: Clopidogrel TAB* 75 MG PO SCH (08:40)
[2019-08-14] MEDS: NEBIVOLOL 2.5 MG PO SCH ×2 (08:43→22:00)
[2019-08-14] MEDS: RASAGILINE 1 MG PO SCH (08:45)
[2019-08-14] MEDS: ENTACAPONE 200 MG PO SCH ×4 (08:55→21:55)
[2019-08-14] MEDS: Enoxaparin(*) 40 MG/0.4 ML SYR SUBCUT SCH (10:31)
[2019-08-14] MEDS: ROPINIROLE 4 MG PO SCH ×2 (10:40→22:01)
--- NOTE | 2019-08-14 15:00 | PN ---
Subjective Date of Service: 08/14/19 Interval History: This morning, patient again had diaphoresis but no fever in the last 24 hours. In general, he felt better though still had burning sensation when peeing. Objective Active Medications: Acetaminophen (Tylenol Tab*) 650 mg PO Q6H PRN PRN Reason: PAIN - MILD Last Admin: 08/14/19 00:18 Dose: 650 mg Amantadine HCl (Symmetrel Cap*) 100 mg PO TID [facility] Last Admin: 08/14/19 13:51 Dose: 100 mg Aspirin (Aspirin Ec Tab*) 81 mg PO BEDTIME [facility] Last Admin: 08/13/19 21:42 Dose: 81 mg Atorvastatin Calcium (Lipitor*) 40 mg PO BEDTIME [facility] Last Admin: 08/13/19 21:42 Dose: 40 mg Carbidopa/Levodopa (Sinemet 25/100 Tab(*)) 1 tab PO 0900,1400,1800,2100 [facility] Last Admin: 08/14/19 13:52 Dose: 1 tab Carbidopa/Levodopa (Sinemet Cr 50/200(*)) 1 tab.cr PO 0000 [facility] Last Admin: 08/14/19 00:14 Dose: 1 tab.cr Carbidopa/Levodopa (Sinemet 25/100 Tab(*)) 1 tab PO 0000 [facility] Last Admin: 08/14/19 00:14 Dose: 1 tab Clopidogrel Bisulfate (Plavix Tab*) 75 mg PO QAM [facility] Last Admin: 08/14/19 08:40 Dose: 75 mg Enoxaparin Sodium (Lovenox(*)) 40 mg SUBCUT Q24H [facility] Last Admin: 08/14/19 10:31 Dose: 40 mg Entacapone (Comtan(Nf)) 200 mg PO 0900,1400,1800,2100 [facility] Last Admin: 08/14/19 13:53 Dose: 200 mg Entacapone (Comtan(Nf)) 200 mg PO 0000 [facility] Last Admin: 08/14/19 00:14 Dose: 200 mg Escitalopram Oxalate (Lexapro *) 10 mg PO DAILY [facility] Last Admin: 08/14/19 08:40 Dose: 10 mg Ceftriaxone Sodium 2 gm/ (Sodium Chloride) 100 mls @ 200 mls/hr IVPB 1800 [facility] Last Admin: 08/13/19 17:59 Dose: 200 mls/hr Ibuprofen (Motrin Tab*) 400 mg PO Q6H PRN PRN Reason: MILD PAIN or TEMP > 100.4 Nebivolol (Bystolic Tab (Nf)) 5 mg PO QAM [facility] Last Admin: 08/14/19 08:43 Dose: 5 mg Nebivolol (Bystolic Tab (Nf)) 2.5 mg PO 2100 [facility] Last Admin: 08/13/19 21:46 Dose: 2.5 mg Nitroglycerin (Nitroglycerin Tab 0.4 Mg*) 0.4 mg SL Q5M PRN PRN Reason: PAIN - CHEST Pto:Ropinirole Er 4 (Mg Tab) 1 dose PO BID [facility] Last Admin: 08/14/19 10:40 Dose: 1 dose Polyethylene Glycol/Electrolytes (Miralax*) 17 gm PO BEDTIME PRN PRN Reason: CONSTIPATION Rasagiline (Azilect (Nf)) 1 mg PO DAILY [facility] Last Admin: 08/14/19 08:45 Dose: 1 mg Vital Signs - 8 hr 08/14/19 08/14/19 08/14/19 07:15 08:00 11:15 Temperature 97.8 F 97.9 F Pulse Rate 55 59 Respiratory 20 16 21 Rate Blood Pressure 129/72 128/65 (mmHg) O2 Sat by Pulse 100 99 Oximetry Oxygen Devices in Use Now: None Exam: Appearance: lying on the bed comfortably. Eyes: No Scleral Icterus Ears/Nose/Mouth/Throat: NL Teeth, Lips, Gums Neck: NL Appearance and Movements; NL JVP Respiratory: Symmetrical Chest Expansion and Respiratory Effort Cardiovascular: RRR, no murmur Abdominal: soft, non tender. Lymphatic: No Cervical Adenopathy Extremities: No Edema Result Diagrams: 08/13/19 05:16 08/13/19 05:16 Additional Lab and Data: Lab Results 08/11/19 08/11/19 08/11/19 Range/Units 20:16 20:16 20:16 WBC 8.3 (3.5-10.8) 10^3/uL RBC 4.69 (4.18-5.48) 10^6 /uL Hgb 14.2 (14.0-18.0) g/dL Hct 41 L (42-52) % MCV 87 (80-94) fL MCH 30 (27-31) pg MCHC 35 (31-36) g/dL RDW 13 (10-15) % Plt Count 187 (150-450) 10^3/uL MPV 6.7 L (7.4-10.4) fL Neut % (Auto) 91.9 % Lymph % (Auto) 5.4 % [place] % (Auto) 1.5 % Eos % (Auto) 0.6 % Baso % (Auto) 0.6 % Absolute Neuts (auto) 7.6 (1.5-7.7) 10^3/ul Absolute Lymphs (auto) 0.5 L (1.0-4.8) 10^3/ul Absolute Monos (auto) 0.1 (0-0.8) 10^3/ul Absolute Eos (auto) 0.1 (0-0.6) 10^3/ul Absolute Basos (auto) 0.1 (0-0.2) 10^3/ul Absolute Nucleated RBC 0.0 10^3/ul Nucleated RBC % 0.2 ESR Pending INR (Anticoag Therapy) 1.33 H (0.82-1.09) APTT 31.7 (26.0-38.0) seconds Sodium 133 L (135-145) mmol/L Potassium 3.8 (3.5-5.0) mmol/L Chloride 100 L (101-111) mmol/L Carbon Dioxide 26 (22-32) mmol/L Anion Gap 7 (2-11) mmol/L BUN 17 (6-24) mg/dL Creatinine 1.01 (0.67-1.17) mg/dL Est GFR ( Amer) 88.6 (>60) Est GFR (Non-Af Amer) 73.2 (>60) BUN/Creatinine Ratio 16.8 (8-20) Glucose 119 H (70-100) mg/dL Lactic Acid (0.5-2.0) mmol/L Calcium 8.9 (8.6-10.3) mg/dL Total Bilirubin 1.10 H (0.2-1.0) mg/dL AST 18 (13-39) U/L ALT 7 (7-52) U/L Alkaline Phosphatase 84 (34-104) U/L Total Creatine Kinase 117 (10-223) U/L Troponin I 0.04 H* (<0.04) ng/mL C-Reactive Protein 51.95 H (<8.01) mg/L B-Natriuretic Peptide (<=100) pg/mL Total Protein 6.9 (6.4-8.9) g/dL Albumin 4.2 (3.2-5.2) g/dL Globulin 2.7 (2-4) g/dL Albumin/Globulin Ratio 1.6 (1-3) Urine Color Urine Appearance Urine pH (5-9) Ur Specific [place] (1.010-1.030) Urine Protein (Negative) Urine Ketones (Negative) Urine Blood (Negative) Urine Nitrate (Negative) Urine Bilirubin (Negative) Urine Urobilinogen (Negative) Ur Leukocyte Esterase (Negative) Urine WBC (Auto) (Absent) Urine RBC (Auto) (Absent) Urine Bacteria (Absent) Urine Glucose (Negative) 08/11/19 08/11/19 08/11/19 Range/Units 20:16 20:16 20:45 WBC (3.5-10.8) 10^3/uL RBC (4.18-5.48) 10^6 /uL Hgb (14.0-18.0) g/dL Hct (42-52) % MCV (80-94) fL MCH (27-31) pg MCHC (31-36) g/dL RDW (10-15) % Plt Count (150-450) 10^3/uL MPV (7.4-10.4) fL Neut % (Auto) % Lymph % (Auto) % [place] % (Auto) % Eos % (Auto) % Baso % (Auto) % Absolute Neuts (auto) (1.5-7.7) 10^3/ul Absolute Lymphs (auto) (1.0-4.8) 10^3/ul Absolute Monos (auto) (0-0.8) 10^3/ul Absolute Eos (auto) (0-0.6) 10^3/ul Absolute Basos (auto) (0-0.2) 10^3/ul Absolute Nucleated RBC 10^3/ul Nucleated RBC % ESR INR (Anticoag Therapy) (0.82-1.09) APTT (26.0-38.0) seconds Sodium (135-145) mmol/L Potassium (3.5-5.0) mmol/L Chloride (101-111) mmol/L Carbon Dioxide (22-32) mmol/L Anion Gap (2-11) mmol/L BUN (6-24) mg/dL Creatinine (0.67-1.17) mg/dL Est GFR ( Amer) (>60) Est GFR (Non-Af Amer) (>60) BUN/Creatinine Ratio (8-20) Glucose (70-100) mg/dL Lactic Acid 2.1 H* (0.5-2.0) mmol/L Calcium (8.6-10.3) mg/dL Total Bilirubin (0.2-1.0) mg/dL AST (13-39) U/L ALT (7-52) U/L Alkaline Phosphatase (34-104) U/L Total Creatine Kinase (10-223) U/L Troponin I (<0.04) ng/mL C-Reactive Protein (<8.01) mg/L B-Natriuretic Peptide 66 (<=100) pg/mL Total Protein (6.4-8.9) g/dL Albumin (3.2-5.2) g/dL Globulin (2-4) g/dL Albumin/Globulin Ratio (1-3) Urine Color [place] Urine Appearance Cloudy Urine pH 7.0 (5-9) Ur Specific [place] 1.018 (1.010-1.030) Urine Protein Negative (Negative) Urine Ketones Trace A (Negative) Urine Blood Negative (Negative) Urine Nitrate Negative (Negative) Urine Bilirubin Negative (Negative) Urine Urobilinogen Negative (Negative) Ur Leukocyte Esterase 3+ A (Negative) Urine WBC (Auto) 3+(>20/hpf) A (Absent) Urine RBC (Auto) Absent (Absent) Urine Bacteria 2+ A (Absent) Urine Glucose Negative (Negative) Assess/Plan/Problems-Billing Assessment: 69 y/o male with history of advanced parkinson disease, exercise induced ventricular tachycardia, CAD, presented with acute onset fever, chills and urinary burning sensation, found to have E.coli bacteremia likely due to E.coli UTI. - Patient Problems (1) Bacteremia Current Visit: Yes Status: Acute Code(s): R78.81 - BACTEREMIA SNOMED Code( s): 0349956 Comment: - E.coli, pansensitive - likely due to UTI, urine cs E.coli - doesn't meet sepsis criteria - start on IV ceftriaxone - symptomatic tx for fever - watch fever, if afebrile for 48 hour, can oralize abx (2) UTI (urinary tract infection) Current Visit: Yes Status: Acute Comment: - E.coli UTIl, pansensitive - continue IV ceftriaxone (3) LBBB (left bundle branch block) Current Visit: Yes Status: Acute Code(s): I44.7 - LEFT BUNDLE-BRANCH BLOCK, UNSPECIFIED SNOMED Code(s): 26301319 Comment: intermittent LBBB not new (4) Parkinson disease Current Visit: Yes Status: Acute Code(s): G20 - PARKINSON'S DISEASE SNOMED Code(s): 11486366 Comment: on deep brain stimulation, continue home medication (5) DVT prophylaxis Current Visit: Yes Status: Acute Code(s): Z29.9 - ENCOUNTER FOR PROPHYLACTIC MEASURES, UNSPECIFIED SNOMED Code(s): 446162761 Comment: sc lovenox Status and Disposition: Inpatient Medicine. If patient keeps afebrile for 48hours, he can get discharged. Attestation Documenting Resident: Juliette Singleton Supervising Physician: Frank Singh Attending/Supervising Physician Comment: Agree with plan as outlined in Dr. Singleton's note from today unless indicated here. Bacteremia and UTI without sepsis. Discharge after 48 hrs fever free tomorrow. Attestation: This service has been performed in part by a resident under the direction of a teaching physician.I, Frank Singh, performed the service, or was physically present during the critical, or [place] portions of the service, furnished by the resident. I participated in the management of the patient.
[2019-08-14] MEDS: cefTRIAXone(*) 2 GM in NS 0.9% 100 ML* 100 ML IVPB SCH (18:21)
[2019-08-14] MEDS: Aspirin EC TAB* 81 MG TAB.EC PO SCH (21:50)
[2019-08-14] MEDS: Atorvastatin* 40 MG TAB PO SCH (21:51)
[2019-08-15] MEDS: Amantadine CAP* 100 MG PO SCH (09:09)
[2019-08-15] MEDS: Enoxaparin(*) 40 MG/0.4 ML SYR SUBCUT SCH (09:09)
[2019-08-15] MEDS: Escitalopram * 10 MG TAB PO SCH (09:10)
[2019-08-15] MEDS: Carbidopa/Levodop 25/100 MG TAB(*) PO SCH (09:10)
[2019-08-15] MEDS: Clopidogrel TAB* 75 MG PO SCH (09:11)
[2019-08-15] MEDS: ENTACAPONE 200 MG PO SCH (09:11)
[2019-08-15] MEDS: NEBIVOLOL 2.5 MG PO SCH (09:12)
[2019-08-15] MEDS: RASAGILINE 1 MG PO SCH (09:21)
[2019-08-15] MEDS: ROPINIROLE 4 MG PO SCH (09:22)
[2019-08-15] MEDS ORDERED: Sulfamethox/Trimethoprim DS 800/160* TAB PO ONE (10:24)
[2019-08-15 12:06] VITALS: BP 128/69
--- NOTE | 2019-08-15 19:58 | DS ---
Amended report to enter date of admission and date of discharge. CC: Dr. Bolivar * DISCHARGE SUMMARY: DATE OF ADMISSION: 08/12/19. DATE OF DISCHARGE: 08/15/19. PRIMARY CARE PHYSICIAN: Dr. Bolivar. DISPOSITION AT DISCHARGE: Home. CONDITION AT DISCHARGE: Stable. PRIMARY DIAGNOSES: Bacteremia and urinary tract infection with Escherichia coli , pansensitive to all antibiotics tested except for amoxicillin and ampicillin. SECONDARY DIAGNOSES: Include: 1. Parkinson disorder with a history of deep brain stimulator. 2. Hyperlipidemia. 3. Intermittent left bundle-branch block. 4. Coronary artery disease. 5. History of depression. MEDICATIONS ON DISCHARGE: Include unchanged from admission except for the addition of Bactrim double strength for 4 additional days. Home medications include: 1. Amantadine 100 mg 3 times a day. 2. Aspirin 81 mg at bedtime. 3. Atorvastatin 40 mg at bedtime. 4. Plavix 75 mg in the morning. 5. Lexapro 10 mg daily. 6. Bystolic 5 mg twice daily. 7. Nitroglycerin sublingual. 8. MiraLAX at bedtime as needed. 9. Azilect 1 mg daily. 10. Ropinirole ER 8 mg twice daily. 11. Sinemet 5 times daily. 12. Sinemet CR 50/200 one tab at midnight. 13. Entacapone 200 mg 5 times daily. HISTORY OF PRESENT ILLNESS AND HOSPITAL COURSE: This is a 69-year-old man with past medical history as outlined in the history of present illness on the day of admission who presented to the hospital with fevers and chills, found with a T-max of 103.4 on presentation to the emergency room, started on ceftriaxone which he has continued throughout the course of the hospital stay. Urine grew back E. coli as that has blood, likely source was the urine. The patient improved with IV antibiotics. He was discharged as he was fever free for 48 hours to finish a course of Bactrim, targeting 7 days total antibiotics. There are no complications during the course of the hospital stay. At followup: Evaluate for continued improvement. No specific labs or vitals that need followup. Reasons to return to the hospital including, but not limited to, recurrent or worsening symptoms, chest pain, shortness of breath, nausea, vomiting, lightheadedness, loss of consciousness, recurrent fevers, inability to obtain or tolerate medications discussed with the patient. He acknowledged understanding. TIME SPENT: Greater than 60 minutes were spent on discharge of this patient, of which greater than half was spent [id number] with the patient. [id number]/[facility] #: [id number] AARON
== END 2019-08-15 22:06 | disposition home or self-care (01) | DRG 690 ==
LOC: ED 19:45 → MEDTELE 08-12 01:17
PROVIDERS: ADMIT Internal Medicine; ATTEND Internal Medicine
DX: N39.0 Urinary tract infection, site not specified (principal); R78.81 Bacteremia; I47.2 Ventricular tachycardia; Z16.11 Resistance to penicillins; G20 Parkinson's disease; B96.20 Unspecified Escherichia coli [E. coli] as the cause of diseases classified elsewhere; E78.5 Hyperlipidemia, unspecified; I44.7 Left bundle-branch block, unspecified; I25.10 Atherosclerotic heart disease of native coronary artery without angina pectoris; R74.8 Abnormal levels of other serum enzymes; F32.9 Major depressive disorder, single episode, unspecified; Z95.5 Presence of coronary angioplasty implant and graft; Z96.82 Presence of neurostimulator; Z79.02 Long term (current) use of antithrombotics/antiplatelets; Z79.82 Long term (current) use of aspirin; Z79.899 Other long term (current) drug therapy; Z88.8 Allergy status to other drugs, medicaments and biological substances; Z82.49 Family history of ischemic heart disease and other diseases of the circulatory system; Z87.891 Personal history of nicotine dependence
CPT/HCPCS: 36415; 71046; 80048; 80053; 81003; 81015; 82247; 82550; 83036; 83605; 83880; 84484; 85025; 85610; 85652; 85730; 86140; 87040; 87077; 87086; 87186; 87205; 93005; 93306; 95811; 96365; 99284; A9270-GY; J0696; J1650